=== PATIENT | female | born 1995 | race Two or more races ===

== ENCOUNTER 2020-05-22 08:45 | Emergency (ER) | payer SELFPAY ==
[~2020-05-22] VITALS: Ht 162.6 cm; Wt 63.0 kg
[2020-05-22 08:57] VITALS: BP 117/76
[2020-05-22] MEDS ORDERED: AMOX500C PO (09:10)
--- NOTE | 2020-05-22 09:10 | PHYS DOC ---
General Adult EDM: Chief Complaint: SORE THROAT HPI: HPI: Patient is a 24 year old female who presented to ER for 3-day history of sore throat. Patient denies any fever, no headache, no neck pain. Review of Systems: Review of Systems: Constitutional: Denies fever or chills. [] Eyes: Denies change in visual acuity. [] HENT: positive for sore throat Respiratory: Denies cough or shortness of breath. [] Cardiovascular: Denies chest pain or edema. [] GI: Denies abdominal pain, nausea, vomiting, bloody stools or diarrhea. [] : Denies dysuria. [] Musculoskeletal: Denies back pain or joint pain. [] Integument: Denies rash. [] Neurologic: Denies headache, focal weakness or sensory changes. [] Endocrine: Denies polyuria or polydipsia. [] Lymphatic: Denies swollen glands. [] Psychiatric: Denies depression or anxiety. [] Heart Score: C/O Chest Pain: N/A Risk Factors: Risk Factors: DM, Current or recent (<one month) smoker, HTN, HLP, family history of CAD, obesity. Risk Scores: Score 0 - 3: 2.5% MACE over next 6 weeks - Discharge Home Score 4 - 6: 20.3% MACE over next 6 weeks - Admit for Clinical Observation Score 7 - 10: 72.7% MACE over next 6 weeks - Early Invasive Strategies Current Medications: Current Medications Medications (Trade) Dose Ordered Sig/Crow Start Time Stop Time Status Last Admin Dose Admin Ceftriaxone Sodium (Rocephin Im) 1 gm 1X ONCE 05/22/20 09:15 05/22/20 09:16 UNV Ketorolac Tromethamine (Toradol Im) 60 mg 1X ONCE 05/22/20 09:15 05/22/20 09:16 UNV Methylprednisolone Sodium Succinate (SOLU-Medrol 125MG VIAL) 125 mg 1X ONCE 05/22/20 09:15 05/22/20 09:16 UNV Physical Exam: PE: Constitutional: Well developed, well nourished, no acute distress, non-toxic appearance. [] HENT: Normocephalic, atraumatic, bilateral external ears normal, oropharynx with erythema, bilateral tonisllar hypertrophy with exudations, no trismus, nose normal. [] Eyes: PERRLA, EOMI, conjunctiva normal, no discharge. [] Neck: Normal range of motion, bilateral anterior cervical lymph nodes tender to palpation, supple, no stridor. [] Cardiovascular:Heart rate regular rhythm, no murmur [] Lungs & Thorax: Bilateral breath sounds clear to auscultation [] Abdomen: Bowel sounds normal, soft, no tenderness, no masses, no pulsatile masses. [] Skin: Warm, dry, no erythema, no rash. [] Back: No tenderness, no CVA tenderness. [] Extremities: No tenderness, no cyanosis, no clubbing, ROM intact, no edema. [] Neurologic: Alert and oriented X 3, normal motor function, normal sensory function, no focal deficits noted. [] Psychologic: Affect normal, judgement normal, mood normal. [] Current Patient Data: Labs: Current Medications Medications (Trade) Dose Ordered Sig/Crow Route PRN Reason Start Time Stop Time Status Last Admin Dose Admin Ketorolac Tromethamine (Toradol Im) 60 mg 1X ONCE IM 05/22/20 09:15 05/22/20 09:16 DC 05/22/20 09:39 Methylprednisolone Sodium Succinate (SOLU-Medrol 125MG VIAL) 125 mg 1X ONCE IM 05/22/20 09:15 05/22/20 09:16 DC 05/22/20 09:41 Ceftriaxone Sodium (Rocephin Im) 1 gm 1X ONCE IM 05/22/20 09:15 05/22/20 09:16 DC 05/22/20 09:15 EKG: EKG: [] Radiology/Procedures: Radiology/Procedures: [] Course & Med Decision Making: Course & Med Decision Making Pertinent Labs and Imaging studies reviewed. (See chart for details) Patient is a 24-year-old female who presented to ER due to sore throat for 4 days, patient had tonsillitis with exudation, she had no evidence of peritonsillar abscess, there is no trismus, no muffled voice. Patient was given injection of Rocephin in the ER, patient also given injection of steroid in the ER. Patient will be discharged home with antibiotic for 10 days. Dragon Disclaimer: Dragon Disclaimer: This electronic medical record was generated, in whole or in part, using a voice recognition dictation system. Departure Departure Impression: Primary Impression: Tonsillitis with exudate Disposition: HOME SELF CARE/HOMELESS Condition: STABLE Referrals: NO PCP (PCP) Please follow up with [facility] this week. [address], [address] [place] [address] Phone number: [phone] Patient Instructions: Tonsillitis Additional Instructions: Thank you for visiting our Emergency Department. We appreciate you trusting us with your care. If any additional problems come up don't hesitate to return to visit us. Please follow up with your primary care provider so they can plan additional care if needed and know about the problem that you had. If symptoms worsen come back to the Emergency Department. Any concerning symptoms that start such as chest pain, shortness of air, weakness or numbness on one side of the body, running high fevers or any other concerning symptoms return to the ER. Scripts Amoxicillin (AMOXICILLIN) 500 Mg Capsule 1 CAP PO TID for 10 Days, #30 CAP Prov: HAY JIANG DO 05/22/20 HAY JIANG DO May 22, 2020 09:10
[2020-05-22] MEDS: cefTRIAXone IM 1 GM VIAL IM ONE (09:15)
[2020-05-22] MEDS: KETOROLAC 60 MG/2 ML VIAL. IM ONE (09:39)
[2020-05-22] MEDS: methylPREDNISolone SOD SUCC PF 125 MG/2 ML VIAL. IM ONE (09:41)
== END 2020-05-22 09:48 | disposition home or self-care (01) ==
LOC: ER 08:45
DX: J03.90 Acute tonsillitis, unspecified (principal)
CPT/HCPCS: 96372; 99284; J0696; J1885; J2930